=== PATIENT | female | born 1985 | race Caucasian/White ===

== ENCOUNTER 2016-06-01 01:40 | Inpatient (IN) | payer MEDICAID ==
[~2016-06-01] VITALS: Ht 157.5 cm; Wt 86.2 kg
[2016-06-01 06:20] LABS: HEMOGLOBIN 13.5 g/dL (12.2-16.2); LYMPH # 2.4 K/mm3 (0.7-4.5); LYMPH % 22.8 % (10-50.0)
[2016-06-01 06:25] VITALS: BP 117/80
[2016-06-01 06:28] LABS: BUN 6 mg/dL (7-18)
[2016-06-01] MEDS ORDERED: PRENATAL PLUS1 TA1 PO (06:30)
[2016-06-01 06:37] LABS: GFR (ESTIMATED) 118 ML/MIN (59-)
[2016-06-01 07:00] LABS: ABO BLOOD TYPE B; RH BLOOD TYPE POSITIVE
[2016-06-01 07:11] LABS: NEUTROPHILS 77 % (42-76)
--- NOTE | 2016-06-01 08:18 | Operative Note ---
Procedure/Operative Record Procedure Date of procedure: 06/01/16 Pre-Op Dx: Gestational diabetes, large for gestational age Post-Op Dx: Gestational diabetes, large for gestational age Procedure performed: Primary lower segment transverse section Surgeon: Dr. Flynn Osullivan [place] Rug Setter(s): Rebeka Nagy Anesthesia: Gloria Mel EBL (ml): 600 Clinical note: She is a 31-year-old 2 para 1 who is had a previous large baby. She had gestational diabetes in this and as result of that she requested a section. Risks and benefits were discussed with the patient prior to surgery. Operative findings: She delivered a live-born male child at 7:47 AM on the morning of June 01, 2016. Baby had Apgars of 9 at 1 minute and 10 at 5 minutes. Uterus appeared normal as did the ovaries and tubes. Was a true knot in the cord. Operative note: She was taken to the operating room where epidural anesthesia was found be adequate. She was prepped and draped in normal sterile fashion in the supine position with a leftward tilt. A Guzmán catheter was in the bladder. A Pfannenstiel skin incision was made with knife then carried through to the underlying layer of fascia with cautery. The fascia was opened in the midline with cautery and extended laterally using Rogers scissors. Dianne clamps were applied to the superior aspect of the fascial incision which was tented up and the underlying rectus muscles dissected off using cautery. The Dianne clamps were then applied to the inferior aspect of the fascial incision which in a similar fashion was tented up and the underlying rectus muscles dissected off using cautery. The rectus muscles were then in the midline, the peritoneum identified, and entered sharply with Metzenbaum scissors. This incision was then extended superiorly and inferiorly with cautery. We had good visualization of the bladder inferiorly. The bladder peritoneum was then opened in the midline and extended laterally using Metzenbaum scissors. A bladder flap was created digitally. The lower blade of the Jj was inserted so as to push the bladder out of the way. Transverse incision was made through the uterine muscle to the amnion. This incision was then extended laterally using fingers traction. The amnion was entered sharply with knife. The infant's head was then delivered atraumatically. This was followed by the anterior shoulder and the rest of the 's body atraumatically. The oropharynx and nasopharynx were bulb suctioned. The infant was then handed off to Dr. Winchester who assigned Apgars of 9 at 1 minute and 10 at 5 minutes. We then obtained cord blood as well as cord pH. Using gentle traction on the cord and countertraction on the fundus I was able to easily deliver the placenta intact. It had a normal three-vessel cord. The uterus was then cleared of clots and debris and exteriorized from the abdominal cavity. The uterine incision was then closed using running 0 Vicryl suture in a locked fashion. A second layer of the same suture was used to imbricate the first layer. The bladder peritoneum was then closed using running 2-0 Vicryl suture in a locked fashion. The gutters and cul-de-sac were then cleared of clots and debris and the uterus was returned the abdominal cavity. Once again hemostasis was assured. The peritoneum was grasped with Barbie clamps and closed using running 2-0 Vicryl suture. The rectus muscles were then reapproximated using running 0 Vicryl suture. The fascia was closed using running #1 Vicryl suture. The subcutaneous tissues were then irrigated with warm water followed by closure German's fascia using running 2-0 Monocryl suture. The skin was closed with kwesi.The skin was then cleaned with Hibiclens. Sterile dressings were applied. She tolerated the procedure well and was taken to the recovery room in excellent condition. All sponges minute and needle counts were correct. Estimate a blood loss was approximately 600 mL. Conplications: None Specimens: Products of conception at 0817
--- NOTE | 2016-06-01 08:25 | Anesthesia Record ---
Anesthesia Record Part I Total IV fluids: 2500 EBL (ml): 600 Urine Output: 275 Units of blood given: 0 B/P: 115/85 % SaO2: 98 Pulse: 80 Resps: 16 Temp: 98.4 Patient is: Awake, Stable Stable to PACU at: 0820 at 0824
--- NOTE | 2016-06-01 08:26 | Anesthesia Record ---
Anesthesia Record Part II Discharge time: 0850 Destination: OB PACU nurse assessment review? Yes Patient is: Awake, Stable Anesthesia complications? No at 0445
[2016-06-01 09:00] VITALS: BP 138/91
[2016-06-01 11:45] LABS: URINE BILIRUBIN - DIPSTICK NEGATIVE (NEG); URINE BLOOD TRACE-INTACT (NEG)
[2016-06-01 11:52] LABS: URINE SQUAMOUS CELLS OCC #/hpf (0-5)
[2016-06-01 21:44] VITALS: BP 124/77
[2016-06-02 06:24] LABS: HEMOGLOBIN 10.8 g/dL (12.2-16.2)
--- NOTE | 2016-06-02 07:46 | ACUTE CARE PROGRESS NOTE (QUA) ---
Progress Notes Subjective Date 06/02/16 Time 0744 Note She is doing very well. She is eating and drinking and ambulating. She is bottlefeeding. Her pain is well-controlled. Her lochia is normal. Patient/family reports: feeling better, no complaints Objective Findings Last VS-Temp:98.0 B/P:124/77 Pulse:80 Resp:18 SaO2:100 ROOM AIR Last weight lbs:190 oz:0 K.[email or web address] Method:Floor Scales Laboratory Tests 06/02/16 0610: Hgb 10.8 L, Hct 31.7 L 06/01/16 0745: Cord Blood pH 7.35 Exam General appearance: normal appearance, alert, active, no acute distress Reviewed: vital signs, lab results Assessment/Plan Problem List 1. Delivered by section Patient condition Improving, Stable Plan: continue current care This inpt stay is expected to cross 2 MNs from start of care Yes Comments: She is doing very well this morning. We will plan to send her home in 48 hours. at 0745
[2016-06-02 08:51] VITALS: BP 146/82
[2016-06-02 21:40] VITALS: BP 122/72
--- NOTE | 2016-06-03 08:16 | ACUTE CARE PROGRESS NOTE (QUA) ---
Progress Notes Subjective Date 06/03/16 Time 0815 Note He is doing very well this morning. She is eating and drinking and ambulating. She is breast-feeding. Her lochia is normal. Her pain is well-controlled. Patient/family reports: feeling better, no complaints Objective Findings Last VS-Temp:97.6 B/P:122/72 Pulse:78 Resp:18 SaO2:100 ROOM AIR Last weight lbs:190 oz:0 K.184 Method:Floor Scales Exam General appearance: normal appearance, alert, awake, no acute distress Reviewed: vital signs, lab results Assessment/Plan Problem List 1. Delivered by section Patient condition Improving, Stable Plan: continue current care This inpt stay is expected to cross 2 MNs from start of care Yes Comments: She is doing very well and we'll plan to send her home tomorrow. at 0815
[2016-06-03 08:44] VITALS: BP 130/62
[2016-06-03 20:49] VITALS: BP 138/88
[2016-06-04] MEDS ORDERED: PERCOCET 5/3251 EACH PO (07:27)
[2016-06-04 09:40] VITALS: BP 132/87
--- NOTE | 2016-06-04 14:57 | ACUTE CARE PROGRESS NOTE (QUA) ---
Progress Notes Subjective Date 06/04/16 Time 1455 Note She continues to do well this morning. She is eating and drinking and ambulating. Her breast-feeding is going well. Patient/family reports: feeling better, no complaints Objective Findings Last VS-Temp:98.2 B/P:132/87 Pulse:113 Resp:16 SaO2:100 ROOM AIR Last weight lbs:190 oz:0 K.184 Method:Floor Scales Exam General appearance: normal appearance, alert, awake, no acute distress Reviewed: vital signs, lab results Assessment/Plan Problem List 1. Delivered by section Patient condition Improving, Stable Plan: continue current care, initiate discharge plan This inpt stay is expected to cross 2 MNs from start of care Yes Comments: She is doing very well and she is being discharged home today. at 0398
--- NOTE | 2016-06-04 15:00 | Discharge Summary ---
Discharge Summary Admission date: 06/01/16 Discharge date: 06/04/16 Discharge diagnoses: Term , large for gestational age , section Clinical note: She is a 31-year-old 2 now para 2 who was 39 weeks gestational age. She' s had a previous large for gestational age and as result of that was offered primary lower segment transverse section at term. She did not want to go through labor like she did her first time. Course in hospital: On June 01, 2016 she underwent a primary lower segment transverse section and delivered a live-born male child. The baby weighed 7 lbs. 15 oz. and was 20 inches long. He had Apgars of 9 at 1 minute and 10 at 5 minutes. She has done well and has remained afebrile throughout her hospitalization. She is eating and drinking and ambulating. She is breast-feeding. Her lochia is normal. She has B positive blood, she is rubella immune and was group B streptococcus negative. She is breast-feeding. Her fire operations forester is Dr. Winchester. Laboratory Tests 06/02/16 0610: Hgb 10.8 L, Hct 31.7 L Plans for ongoing care: She is discharged home to follow-up with me in approximately 2 weeks' time. Discharge medications She will continue with her vitamins and iron. She has ibuprofen at home. She was given a prescription for Percocet 5/325, 30 tablets. DC/follow-up instructions She was given the usual instructions with respect to limiting her activity, driving and sexual activity. She was given instructions with respect to wound care. Condition at discharge Stable and improved at 0436
== END 2016-06-04 11:10 | disposition home or self-care (01) | DRG 766 ==
LOC: OB 01:40 → SDC 07:30 → EDSTATUS 07:30 → OB 06-04 11:10
PROVIDERS: Nurse Practitioner Obstetrics & Gynecology
PROC: 10D00Z1 Extraction of Products of Conception, Low, Open Approach (ICD-10-PCS; principal; 2016-06-01 07:30)
DX: O24.429 Gestational diabetes mellitus in childbirth, unspecified control (principal); O36.63X0 Maternal care for excessive fetal growth, third trimester, not applicable or unspecified; Z37.0 Single live birth; Z3A.39 39 weeks gestation of pregnancy
CPT/HCPCS: J0131; J2405